=== PATIENT | female | born 1960 | race African-American/Black ===

== ENCOUNTER 2025-05-19 08:17 | Emergency (ER) | payer OTHER ==
[~2025-05-19] VITALS: Ht 172.7 cm; Wt 118.6 kg
[~2025-05-19 08:17] MED LIST: BACL10TA PO; BENZ2TAB84 PO; BUPR-50 PO; FLUP5TAB31 PO; OXCA300T70 PO; TRAM50TA5 PO
[2025-05-19] MEDS ORDERED: EZET10TA57 PO (08:33)
[2025-05-19] MEDS ORDERED: GABA-1181 PO (08:33)
[2025-05-19] MEDS ORDERED: MAGN300C PO (08:33)
[2025-05-19] MEDS ORDERED: TEMA15CA PO (08:33)
[2025-05-19] MEDS ORDERED: CHOL500043 PO (08:33)
[2025-05-19] MEDS ORDERED: TRIA50CA3 PO (08:33)
[2025-05-19] MEDS ORDERED: MIRT-149 PO (08:33)
[2025-05-19] MEDS ORDERED: FLUP5TAB31 PO (08:33)
[2025-05-19] MEDS ORDERED: TRAZ150T80 PO (08:33)
[2025-05-19] MEDS ORDERED: OMEP-148 PO (08:33)
[2025-05-19] MEDS ORDERED: DIVA-153 PO (08:33)
[2025-05-19] MEDS ORDERED: ATOR10TA PO (08:33)
[2025-05-19] MEDS ORDERED: MAXZIDE PO (08:33)
[2025-05-19] MEDS ORDERED: CYCL-448 PO ×2 (08:33→09:44)
[2025-05-19] MEDS ORDERED: AMLO-257 PO (08:33)
[2025-05-19 08:35] VITALS: TEMP 98.6
[2025-05-19 08:43] VITALS: BP 112/66; PULSE 85; RESP 16; O2SAT 99
[2025-05-19 09:06] LABS: GLUCOMETER DEV NAME(LOC) ERT.7; GLUCOSE,POINT OF CARE 95 MG/DL (70-110)
[2025-05-19] MEDS: KETOROLAC TROMETHAMINE 30 MG/ML VIAL IM ONE (09:38)
[2025-05-19] MEDS ORDERED: IBUP-1492 PO (09:44)
== END 2025-05-19 10:18 | disposition home or self-care (01) ==
LOC: EMS 08:17
DX: G89.29 Other chronic pain (principal); M54.50 Low back pain, unspecified; M54.31 Sciatica, right side; M54.32 Sciatica, left side; F31.9 Bipolar disorder, unspecified; F20.9 Schizophrenia, unspecified; M51.372 Other intervertebral disc degeneration, lumbosacral region with discogenic back pain and lower extremity pain; F41.9 Anxiety disorder, unspecified; Z90.710 Acquired absence of both cervix and uterus; Z88.5 Allergy status to narcotic agent; Z88.0 Allergy status to penicillin; Z79.899 Other long term (current) drug therapy
CPT/HCPCS: 99283; 82962; 96372; J1885

== ENCOUNTER 2025-08-19 22:01 | Inpatient (IN) | payer OTHER ==
[~2025-08-19] VITALS: Ht 172.7 cm; Wt 111.0 kg
[~2025-08-19 22:01] MED LIST changes: +AMLO-257 PO; +ATOR10TA PO; +CHOL500043 PO; +CYCL-448 PO; +DIVA-153 PO; +EZET10TA57 PO; +GABA-1181 PO; +IBUP-1492 PO; +MAGN300C PO; +MAXZIDE PO; +MIRT-149 PO; +OMEP-148 PO; +TEMA15CA PO; +TRAZ150T80 PO; +TRIA50CA3 PO
[2025-08-19 22:32] LABS: PLATELET COUNT (AUTO) 334 K/uL (150-450); RED BLOOD CELL COUNT(AUTO) 4.35 MIL/uL (4.00-5.20); RED CELL DISTRIBUTION WIDTH 14.4 % (11.5-14.5); WHITE BLOOD COUNT (AUTO) 8.7 K/uL (4.5-11.0)
[2025-08-19 22:48] LABS: CALCIUM, TOTAL 9.0 mg/dL (8.8-10.5); CREATININE 1.32 mg/dL (0.60-1.30); GLOMERULAR FILTR. RATE CALC 49 mL/min (>60); GLUCOSE,RANDOM 126 mg/dL (70-110); SODIUM SERUM 138 mmol/L (136-145); UREA NITROGEN, BLOOD 8 mg/dL (7-18)
[2025-08-19 22:59] LABS: TROPONIN I-HIGH SENSITIVITY 76 ng/L (<51)
[2025-08-19 23:20] VITALS: PULSE 109; RESP 20; O2SAT 97
[2025-08-19] MEDS: IPRATROPIUM BROMIDE 0.5 MG/2.5 ML NEB SOLUTION NEB ONE (23:20)
[2025-08-19] MEDS: ALBUTEROL SULFATE 2.5 MG/0.5 ML NEB SOLUTION NEB ONE (23:20)
[2025-08-19 23:35] VITALS: PULSE 108; RESP 20; O2SAT 100
[2025-08-20] VITALS (7 sets, daily range): BP systolic 97–115; BP diastolic 68–81; PULSE 98–111; RESP 18–22; TEMP 97.5–98.2; O2SAT 94–98
[2025-08-20 00:54] LABS: TROPONIN I-HIGH SENSITIVITY 93 ng/L (<51)
[2025-08-20] MEDS ORDERED: ONDANSETRON HCL 4 MG/2 ML VIAL IVP PRN (06:00)
[2025-08-20] MEDS: FAMOTIDINE 20 MG TABLET PO SCH (07:21)
[2025-08-20] MEDS: DOCUSATE SODIUM 100 MG CAPSULE PO SCH (07:22)
[2025-08-20] MEDS: HEPARIN SODIUM,PORCINE 5,000 UNITS/ML VIAL SQ SCH (07:22)
[2025-08-20] MEDS ORDERED: ROCURONIUM BROMIDE 10 MG/ML 5 ML VIAL ONE (12:00)
[2025-08-20] MEDS ORDERED: 0.9% SODIUM CHLORIDE 10 ML SYRINGE IVP ONE (12:00)
[2025-08-20] MEDS ORDERED: SODIUM BICARBONATE [ADULT] 8.4% 50 MEQ/50 ML SYRINGE IVP ONE (12:00)
[2025-08-20] MEDS ORDERED: LORazepam 2 MG/ML VIAL ONE (12:00)
[2025-08-20] MEDS ORDERED: CALCIUM CHLORIDE 100 MG/ML 10 ML SYRINGE IVP ONE (12:00)
[2025-08-20] MEDS ORDERED: NALOXONE HCL 1 MG/ML 2 ML SYRINGE ONE (12:00)
[2025-08-20] MEDS ORDERED: ETOMIDATE 2 MG/ML 10 ML VIAL ONE (12:00)
[2025-08-20] MEDS ORDERED: ATROPINE SULFATE 0.1 MG/ML 10 ML SYRINGE IVP ONE (12:00)
[2025-08-20] MEDS ORDERED: 0.9% SODIUM CHLORIDE 1,000 ML BAG ONE (12:00)
[2025-08-20] MEDS ORDERED: EPINEPHrine 1:10,000 [1 MG/10 ML] SYRINGE ONE ×2 (12:00)
[2025-08-20] MEDS ORDERED: INFLUENZA VIRUS VACCINE TVS (6MO+) 2025-26/PF 45 MCG/0.5 ML SYRINGE IM. ONE (13:00)
[2025-08-20] MEDS ORDERED: 0.9% SODIUM CHLORIDE 5 ML NEB SOLUTION NEB ONE (13:15)
[2025-08-20] MEDS: ALBUTEROL SULFATE 2.5 MG/0.5 ML NEB SOLUTION NEB PRN (13:23)
[2025-08-20] MEDS ORDERED: BENZ2TAB84 PO (13:47)
[2025-08-20] MEDS ORDERED: MIRT-149 PO (13:50)
[2025-08-20] MEDS ORDERED: TRIA50CA PO (13:59)
[2025-08-20] MEDS ORDERED: TraZODone HCL 150 MG TABLET PO PRN (15:00)
[2025-08-20 16:52] LABS: APPEARANCE,URINE CLEAR (CLEAR); GLUCOSE, URINE (UA) TRACE mg/dL (NEGATIVE); LEUKOCYTE ESTERASE ,URINE NEGATIVE (NEGATIVE); NITRATE,URINE NEGATIVE (NEGATIVE); OCCULT BLOOD,URINE NEGATIVE (NEGATIVE); SPECIFIC GRAVITIY, URINE 1.023 (1.003-1.030)
[2025-08-20] MEDS: DIVALPROEX SODIUM 500 MG ER TABLET PO SCH (21:39)
[2025-08-20] MEDS: MIRTAZAPINE 15 MG TABLET PO SCH (21:40)
[2025-08-21 00:22] VITALS: BP 106/88; PULSE 123; RESP 18; TEMP 97.7; O2SAT 97
[2025-08-21 04:34] VITALS: BP 117/87; PULSE 117; RESP 18; TEMP 97.7; O2SAT 98
[2025-08-21 06:46] LABS: PLATELET COUNT (AUTO) 281 K/uL (150-450); RED BLOOD CELL COUNT(AUTO) 4.11 MIL/uL (4.00-5.20); RED CELL DISTRIBUTION WIDTH 14.3 % (11.5-14.5); WHITE BLOOD COUNT (AUTO) 14.1 K/uL (4.5-11.0)
[2025-08-21] MEDS ORDERED: 0.9% SODIUM CHLORIDE 5 ML NEB SOLUTION NEB ONE (06:51)
[2025-08-21 06:54] VITALS: PULSE 131; RESP 28; O2SAT 100
[2025-08-21 06:56] LABS: CALCIUM, TOTAL 9.1 mg/dL (8.8-10.5); CREATININE 1.42 mg/dL (0.60-1.30); GLOMERULAR FILTR. RATE CALC 45.0 mL/min (>60); GLUCOSE,RANDOM 148.0 mg/dL (70-110); SODIUM SERUM 139.0 mmol/L (136-145); UREA NITROGEN, BLOOD 14.0 mg/dL (7-18)
[2025-08-21 07:09] VITALS: PULSE 55; RESP 28; O2SAT 92
[2025-08-21 07:15] LABS: TROPONIN I-HIGH SENSITIVITY 158 ng/L (<51)
[2025-08-21] MEDS ORDERED: SODIUM CHLORIDE 0.9% 1,000 ML ONE (07:41)
[2025-08-21 08:31] LABS: GLUCOMETER DEV NAME(LOC) 5S.2E; GLUCOSE,POINT OF CARE 124 MG/DL (70-110)
[2025-08-21 08:31] LABS: GLUCOMETER DEV NAME(LOC) 5S.1E; GLUCOSE,POINT OF CARE 130 MG/DL (70-110)
== END 2025-08-21 16:00 | DRG 140 ==
LOC: EMS 22:01 → EDH 08-20 02:17 → 5S 08-20 09:40
PROVIDERS: ADMIT Internal Medicine; ATTEND Internal Medicine
PROC: 5A12012 Performance of Cardiac Output, Single, Manual (ICD-10-PCS; principal; 2025-08-21)
DX: J44.1 Chronic obstructive pulmonary disease with (acute) exacerbation (principal); J96.01 Acute respiratory failure with hypoxia; I50.33 Acute on chronic diastolic (congestive) heart failure; E66.9 Obesity, unspecified; F20.9 Schizophrenia, unspecified; I95.9 Hypotension, unspecified; Z68.37 Body mass index [BMI] 37.0-37.9, adult; F31.9 Bipolar disorder, unspecified; N18.2 Chronic kidney disease, stage 2 (mild); F17.200 Nicotine dependence, unspecified, uncomplicated; F41.9 Anxiety disorder, unspecified; G89.29 Other chronic pain; Z88.0 Allergy status to penicillin; Z88.6 Allergy status to analgesic agent; Z88.5 Allergy status to narcotic agent; Z90.710 Acquired absence of both cervix and uterus
CPT/HCPCS: 71045; 80048; 81003; 82962; 83880; 84484; 85025; 92950; 93005; 93306; 94640; 99285; G0378; J0169; J0461; J1265; J1644; J2060; J2312; J2919; J3490; J7030; 36415-L1; 36415-TC; J7613